=== PATIENT | male | born 1990 | race Caucasian/White ===

== ENCOUNTER 2017-02-24 20:27 | Emergency (ER) | payer SELFPAY ==
[2017-02-24 20:43] VITALS: RESP 18; TEMP 97.8
[2017-02-24] MEDS ORDERED: LIDOCAINE 2%/ EPI 1:200,000 - 20 ML VIAL ONE (20:56)
[2017-02-24] MEDS ORDERED: LIDOCAINE 2%/ EPI 1:200,000 - 20 ML VIAL SUBCUT ONE (21:12)
[2017-02-24] MEDS ORDERED: cefTRIAXone Inj 1 GM in Lidocaine Inj 1% 2.1 ML IM ONE (22:21)
--- NOTE | 2017-02-24 22:33 | PDOC ---
Skin Rash/Insect/Abscess HPI - General Chief Complaint: Integumentary Stated Complaint: INGROWN HAIR IN GROIN AREA Date Seen by Provider: 02/24/17 Time Seen by Provider: 20:40 - History of Present Illness Initial Comments: Patient is a very nice 26-year-old gentleman who had shaved some hair in his left inguinal area and ended up having an ingrown hair there. He doesn't the ingrown hair out however the started a small infection. He was able to pop a small pustule that formed there and thought that he had dealt with the infection but it has gotten substantially worse over the last few days to the point where the whole area is red and tender and he is feeling very poorly. Have you received a tetanus shot in the past 10 years?: Unknown - Patient Home Medications Home Medications: Home Medications Cephalexin [Keflex] 500 mg PO Q6H #30 cap 02/24/17 - Patient Allergies Allergies/Adverse Reactions: Allergies Allergy/AdvReac Type Severity Reaction Status Date / Time povidone-iodine Allergy Intermediate RASH Verified 02/24/17 20:31 [From Betadine] soap [From Betadine] Allergy Intermediate RASH Verified 02/24/17 20:31 bupropion HCl Allergy Mild ITCHING Verified 02/24/17 20:31 [From Wellbutrin] Past Medical History - heen HEENT History: Denies History Cardiovascular History: Denies History Respiratory History: Asthma Gastrointestinal History: Other (please comment) Additional Gastrointestinal History: HERNIA REPAIR Genitourinary History: Denies History Endocrine History: Denies History Musculoskeletal History: Denies History Prosthesis or Implant: No Neurological History: Denies History Blood Disorders: Denies History Psychiatric History: Denies History History of Sexually Transmitted Diseases: No Cancer History: Denies History In Past Year Been Physically Harmed or Verbally Threatened: No History of MDRO: No History of Other Communicable Diseases: No Tobacco Use: Former Smoker Alcohol Use: Occasionally How much alcohol do you normally drink a day?: Weekends Substance Use Type: None Previous Surgical History: Yes Type / Date of Surgery: Hernia repair. Tonsilectomy Anesthesia Reactions: No Malignant Hyperthermia: No Significant Family History: No pertinent family hx Past Medical History Reviewed: Reviewed - No Changes ROS - Limitations ROS Limitations: No Limitations Constitution: REPORTS: Denies Symptoms. DENIES: Fever Cardiovascular: REPORTS: Denies Cardiac Symptoms Respiratory: REPORTS: Denies Resp Symptoms Neurological: REPORTS: Denies Neuro Symptoms Skin Rash/Insect/Abscess Exam - General Appearance General Appearance: REPORTS: Alert, Cooperative, No Acute Distress - Skin Skin: REPORTS: Other (In the left inguinal area near the base of his penis there is a approximately 0.5" x 1" fluctuant firm abscess present under substantially erythematous cellulitic appearing skin.) - HEENT HEENT: POSITIVE: Head Inspection Nml Procedures - Incision and Drainage Site: left inguinal Local Anesthesia Used - Indicate Amt Used in Comment: Lidocaine 2% with Epinephrine: Yes Blade Size: 15 I & D Procedure: gauze wick placed I&D Treatment: Purulent Drainage, Large Amount, Obtained Cultures, Gram Stains Obtained Skin Rash/Abscess Progress - Patient's Progress MDM / ED Course: This patient has substantial abscess that did drain a fair amount of purulence. A wick gauze was placed and he is encouraged to change that dressing tomorrow night. If he does not have fairly significant improvement over the next 24 hours I've encouraged him to get back in and be seen or get in with his primary care doctor or the day after tomorrow. He is given a dose of IM Rocephin prior to discharge he has gram-positive cocci on his Gram stain and no substantial risks for MRSA. He is started on Keflex orally which she will start taking tomorrow. He knows that he needs to follow-up with his primary care provider to evaluate the culture and to reassess his wound. Patient Care Time - Estimated PCT Patient Care Time (In Minutes): 45 Vital Signs - Recent Vital Signs Vital Signs: Vital Signs (Last 8 hours) Temp Pulse Resp BP Pulse Ox 02/24/17 20:30 97.8 F 73 18 126/88 95 - VS Reviewed Vital Signs Reviewed: Yes Discharge Clinical Impression: Abscess Discharge Disposition: Discharged to Home Condition: Stable Prescriptions / Orders: Cephalexin [Keflex] 500 mg PO Q6H #30 cap Patient Instructions Given at Discharge: Abscess Incision and Drainage (ED) Additional Instructions: Take antibiotics as they have been prescribed for you Follow-up with your primary care provider in the next few days to evaluate the results of your culture. Especially if not improving Return to the emergency department with substantial worsening or any other concerns. Follow Up With: NONE,NONE [Primary Care Provider] -
[2017-02-24] MEDS ORDERED: Ondansetron ODT Tab 8 MG TAB PO SCH (23:00)
== END 2017-02-24 23:30 | disposition home or self-care (01) ==
LOC: ER 20:27
DX: L02.214 Cutaneous abscess of groin (principal)
CPT/HCPCS: 10060 ×2; 87070; 87077; 87186 ×2; 87205; 96372; 99282; 99283; Q0162; J0696; J2001